=== PATIENT | female | born 1940 | race Caucasian/White ===

== ENCOUNTER 2018-03-26 19:16 | Inpatient (IN) | payer MEDICARE ==
[~2018-03-26] VITALS: Ht 152.4 cm; Wt 73.0 kg
[2018-03-26 19:40] LABS: BASOPHILS # (AUTO) 0.1 (0.0-0.1); BASOPHILS % 0.7 % (0.0-1.0); EOSINOPHILS # (AUTO) 0.7 (0.0-0.4); EOSINOPHILS % 6.4 % (0.0-6.0); HEMATOCRIT 44.8 % (34.2-44.1); HEMOGLOBIN 14.9 g/dL (12.0-16.0); LYMPHOCYTES # (AUTO) 4.5 (1.0-3.2); LYMPHOCYTES % 40.9 % (18.0-39.1); MEAN CORPUSCULAR HEMOGLOBIN 27.1 pg (28-32); MEAN CORPUSCULAR HGB CONC 33.3 g/dL (31-35); MEAN CORPUSCULAR VOLUME 81.5 fL (81-99); MONOCYTES # (AUTO) 0.6 (0.2-0.8); MONOCYTES % 5.8 % (4.4-11.3); NEUTROPHILS % 45.5 % (38.7-80.0); PLATELET COUNT 344 x10e3/uL (140-360); RED CELL DISTRIBUTION WIDTH 15.7 % (11.7-14.4)
[2018-03-26 19:43] LABS: CLARITY,URINE HAZY (CLEAR); COLOR,URINE YELLOW (YELLOW)
[2018-03-26 19:44] LABS: BILIRUBIN,URINE NEGATIVE (NEGATIVE); KETONES,URINE 1+ (NEGATIVE); LEUKOCYTE ESTERASE ,URINE 2+ (NEGATIVE); NITRITE,URINE POSITIVE (NEGATIVE); PROTEIN,URINE DIPSTICK 2+ (NEGATIVE); URINE UROBILINOGEN 0.2 mg/dL (0.2 - 1)
[2018-03-26 19:45] LABS: INR 1.04; PARTIAL THROMBOPLASTIN TIME 29.7 seconds (23.8-35.5); PROTHROMBIN TIME 12.8 seconds (11.9-14.5)
[2018-03-26] MEDS ORDERED: ASPIRIN 81 MG CHEW TAB PO ONE (19:45)
[2018-03-26] MEDS ORDERED: NAMZARIC PO (19:48)
[2018-03-26 19:52] LABS: ALBUMIN 2.9 g/dL (3.5-5.0); ALBUMIN/GLOBULIN RATIO 0.7 (0.8-2.0); ANION GAP 17.9 mmol/L (8-16); CALCIUM 9.8 mg/dL (8.4-10.2); CREATININE, SERUM 1.1 mg/dL (0.57-1.11); POTASSIUM 3.9 mmol/L (3.5-5.1)
[2018-03-26 19:55] LABS: WBC,URINE (MAN) >50 /HPF (0-5)
[2018-03-26 19:56] LABS: AMORPHOUS SEDIMENT,URINE MODERATE (FEW); BACTERIA,URINE MANY /HPF
--- NOTE | 2018-03-26 20:22 | Diagnostic Imaging Report ---
EXAMINATION: CHEST SINGLE (PORTABLE) INDICATION: \S\CHEST PAIN \S\[id number] \S\2000 \S\Y COMPARISON: None FINDINGS: AP view TUBES and LINES: 2-lead ICD device overlying the left upper chest with leads overlying the high right atrium and possible right ventricle, though RV lead is uncertain in location. LUNGS: Lungs are well inflated. Bilateral central pulmonary vascular congestion. Minimal atelectasis in both lung bases. PLEURA: No pleural effusion or pneumothorax. HEART AND MEDIASTINUM: Mild cardiomegaly. Enlarged pulmonary arteries. BONES AND SOFT TISSUES: No acute osseous lesion. Soft tissues are unremarkable. UPPER ABDOMEN: No free air under the diaphragm. IMPRESSION: 2-lead ICD. Uncertain location of the right ventricular lead. Recommend repeat upright PA and lateral chest x-ray for better localization. Bilateral central pulmonary vascular congestion. Signed by: Dr. Julieth Nieto M.D. on 03/26/2018 8:19 PM
--- NOTE | 2018-03-26 20:29 | Diagnostic Imaging Report ---
Exam: Head CT without contrast History: Weakness Comparison studies: None Technique: Axial images were obtained from the skull base to the vertex. Coronal and sagittal images reconstructed from the axial data. Intravenous contrast: None Findings: Scalp: No abnormalities. Bones: No fractures, blastic or lytic lesions. Brain sulci: Moderate prominent. Ventricles: Moderately dilated, slightly disproportionate to sulcal prominence is most likely related to degree of central, greater than peripheral cortical volume loss. Consider normal pressure hydrocephalus (NPH) only in the appropriate clinical setting. No acute hydrocephalus. Extra-axial spaces: No masses, no fluid collection. Parenchyma: No mass, acute hemorrhage or acute cortical vascular insults. Ill-defined and confluent hypodensities in the supratentorial white matter are nonspecific but most compatible with chronic microvascular ischemic changes. Sellar/suprasellar region: No abnormalities. Craniocervical junction: Patent foramen magnum. No Chiari one malformation. Incidental findings: Atherosclerotic calcifications in the carotid siphons and right intradural vertebral artery. Partially imaged small metallic density along the anterolateral margin of the right maxillary sinus inferiorly . IMPRESSION: No acute intracranial abnormalities. Chronic findings: 1. Moderate generalized volume loss. 2. Moderate microvascular ischemic changes. 3. Nonspecific ventriculomegaly as described. No acute hydrocephalus. Signed by: Dr. Glen Cheema M.D. on 03/26/2018 8:25 PM
[2018-03-26] MEDS ORDERED: VANCOMYCIN 1GM/NS 250 ML 250 ML IV SCH (21:30)
[2018-03-26] MEDS: PIPER-TAZ 3.375 GM 50 ML IV SCH (21:50)
[2018-03-26] MEDS ORDERED: DEXTROSE 50% SYRINGE 50 ML IV PRN (22:00)
[2018-03-26] MEDS ORDERED: MORPHINE SULFATE 2 MG/ML SYR IV PRN (22:00)
[2018-03-26] MEDS ORDERED: ONDANSETRON HCL INJ 2 MG/ML VIAL IV PRN (22:00)
[2018-03-26 22:38] VITALS: BP 156/76
[2018-03-26 23:22] VITALS: BP 133/70
[2018-03-26] MEDS ORDERED: PIOGLITAZONE HC30 MG PO (23:25)
[2018-03-26] MEDS ORDERED: ATORVASTATIN CA20 MG PO (23:26)
[2018-03-26] MEDS ORDERED: FUROSEMIDE40 MG PO (23:27)
[2018-03-26] MEDS ORDERED: TRADJENTA5 MG PO (23:29)
[2018-03-26] MEDS ORDERED: CARVEDILOL3.125 MG PO (23:30)
[2018-03-27] VITALS (8 sets, daily range): BP systolic 99–145; BP diastolic 56–70
[2018-03-27] MEDS: SODIUM CHLORIDE 0.9% 1000ML 1,000 ML IV SCH ×2 (00:51→17:52)
[2018-03-27 05:01] LABS: BASOPHILS # (AUTO) 0.1 (0.0-0.1); BASOPHILS % 0.6 % (0.0-1.0); EOSINOPHILS # (AUTO) 0.5 (0.0-0.4); EOSINOPHILS % 4.6 % (0.0-6.0); HEMATOCRIT 38.6 % (34.2-44.1); LYMPHOCYTES % 27.1 % (18.0-39.1); MEAN CORPUSCULAR HEMOGLOBIN 27.3 pg (28-32); MEAN CORPUSCULAR HGB CONC 33.7 g/dL (31-35); MEAN CORPUSCULAR VOLUME 81.1 fL (81-99); MONOCYTES # (AUTO) 0.8 (0.2-0.8); MONOCYTES % 6.9 % (4.4-11.3); NEUTROPHILS # (AUTO) 6.6 (2.1-6.9); NEUTROPHILS % 59.4 % (38.7-80.0); PLATELET COUNT 285 x10e3/uL (140-360); RED BLOOD COUNT 4.76 x10e6/uL (3.6-5.1); RED CELL DISTRIBUTION WIDTH 15.6 % (11.7-14.4)
[2018-03-27] MEDS: PIPER-TAZ 3.375 GM 50 ML IV SCH (05:19)
[2018-03-27 05:25] LABS: ALANINE AMINOTRANSFERASE 10 IU/L (0-55); ALBUMIN 2.6 g/dL (3.5-5.0); ALBUMIN/GLOBULIN RATIO 0.7 (0.8-2.0); ALKALINE PHOSPHATASE 94 IU/L (40-150); ANION GAP 15.8 mmol/L (8-16); BLOOD UREA NITROGEN 14 mg/dL (7-26); BUN/CREATININE RATIO 16 (6-25); CALCIUM 9.1 mg/dL (8.4-10.2); CARBON DIOXIDE 22 mmol/L (22-29); CHLORIDE 103 mmol/L (98-107); CREATININE, SERUM 0.85 mg/dL (0.57-1.11); EST GLOMERULAR FILTRATION RATE > 60 ML/MIN (60-); GLUCOSE 277 mg/dL (74-118); POTASSIUM 3.8 mmol/L (3.5-5.1); SODIUM 137 mmol/L (136-145)
[2018-03-27] MEDS: INSULIN REGULAR, HUMAN 100 UNIT/1 ML 3ML VIAL SQ SCH ×4 (08:04→21:00)
[2018-03-27] MEDS: FUROSEMIDE 40 MG TAB PO SCH (09:24)
[2018-03-27] MEDS: CARVEDILOL 3.125 MG TAB PO SCH ×2 (09:24→17:15)
[2018-03-27] MEDS: PIOGLITAZONE HCL 15 MG TAB PO SCH (09:24)
[2018-03-27] MEDS ORDERED: FUROSEMIDE INJ 10 MG/ML 2 ML VIAL IV ONE (09:30)
[2018-03-27] MEDS ORDERED: ACETAMINOPHEN 325 MG TAB PO PRN (09:30)
[2018-03-27] MEDS: FLUCONAZOLE 200 MG/100 ML 100 ML IV SCH (09:54)
[2018-03-27] MEDS: CEFTRIAXONE SOD 1 GM VIAL IV SCH (09:54)
[2018-03-27] MEDS: CLOTRIMAZOLE 1% CR 15 GM TOP SCH (17:15)
[2018-03-27] MEDS: ATORVASTATIN 20 MG TAB PO SCH (20:53)
[2018-03-28] VITALS (7 sets, daily range): BP systolic 107–142; BP diastolic 57–65
[2018-03-28 03:38] LABS: BASOPHILS # (AUTO) 0.1 (0.0-0.1); BASOPHILS % 0.9 % (0.0-1.0); EOSINOPHILS # (AUTO) 0.8 (0.0-0.4); EOSINOPHILS % 7.5 % (0.0-6.0); HEMATOCRIT 36.7 % (34.2-44.1); HEMOGLOBIN 12.3 g/dL (12.0-16.0); LYMPHOCYTES # (AUTO) 4.1 (1.0-3.2); LYMPHOCYTES % 40.3 % (18.0-39.1); MEAN CORPUSCULAR HEMOGLOBIN 27.3 pg (28-32); MEAN CORPUSCULAR HGB CONC 33.5 g/dL (31-35); MEAN CORPUSCULAR VOLUME 81.4 fL (81-99); MONOCYTES # (AUTO) 0.8 (0.2-0.8); MONOCYTES % 7.5 % (4.4-11.3); NEUTROPHILS # (AUTO) 4.3 (2.1-6.9); NEUTROPHILS % 42.8 % (38.7-80.0); PLATELET COUNT 239 x10e3/uL (140-360); RED BLOOD COUNT 4.51 x10e6/uL (3.6-5.1); RED CELL DISTRIBUTION WIDTH 15.9 % (11.7-14.4)
[2018-03-28 03:55] LABS: ANION GAP 14.1 mmol/L (8-16); BLOOD UREA NITROGEN 13 mg/dL (7-26); BUN/CREATININE RATIO 17 (6-25); CALCIUM 8.8 mg/dL (8.4-10.2); CARBON DIOXIDE 24 mmol/L (22-29); CHLORIDE 103 mmol/L (98-107); CREATININE, SERUM 0.76 mg/dL (0.57-1.11); EST GLOMERULAR FILTRATION RATE > 60 ML/MIN (60-); GLUCOSE 148 mg/dL (74-118); MAGNESIUM 1.2 MG/DL (1.3-2.1); POTASSIUM 3.1 mmol/L (3.5-5.1); SODIUM 138 mmol/L (136-145)
[2018-03-28] MEDS: BALSAM PERU/CASTOR OIL 60 GM OINT...G. TP SCH (06:00)
[2018-03-28] MEDS: PIOGLITAZONE HCL 15 MG TAB PO SCH (08:26)
[2018-03-28] MEDS: INSULIN REGULAR, HUMAN 100 UNIT/1 ML 3ML VIAL SQ SCH ×4 (08:27→21:00)
[2018-03-28] MEDS: FUROSEMIDE 40 MG TAB PO SCH (08:28)
[2018-03-28] MEDS: CARVEDILOL 3.125 MG TAB PO SCH ×2 (08:28→17:43)
[2018-03-28] MEDS: CLOTRIMAZOLE 1% CR 15 GM TOP SCH ×2 (08:46→17:39)
[2018-03-28] MEDS ORDERED: POTASSIUM CHLORIDE 20 MEQ TAB CR PO STA (09:21)
[2018-03-28] MEDS ORDERED: MAGNESIUM SULFATE 2GM/50ML 50 ML IV ONE (09:30)
[2018-03-28] MEDS: CEFTRIAXONE SOD 1 GM VIAL IV SCH (10:09)
[2018-03-28] MEDS: FLUCONAZOLE 200 MG/100 ML 100 ML IV SCH (10:09)
--- NOTE | 2018-03-28 13:35 | Consultation ---
DATE OF CONSULTATION: March 28, 2018 REASON FOR CONSULTATION: Pressure decubitus ulcer, UTI. HISTORY OF PRESENT ILLNESS: This patient, who is currently in [facility], is not a good source of information. She does not know why she is here. The patient apparently had a fall on February 25, 2018. Found to have fractured left arm, not a surgical candidate. Patient has been in bed. She presented with a decubitus ulcer to her sacral area. Infectious disease was consulted. The patient has a history of hyperlipidemia, hypertension, diabetes mellitus, congestive heart failure, CVA, and probably some dementia. Does not really provide any meaningful information. PAST SURGICAL HISTORY: ICD placement. REVIEW OF SYSTEMS: The patient is not a good source of information, as mentioned above. HEENT: Negative. PULMONARY: Negative. CARDIAC: Negative. : Negative. The patient was admitted. Her laboratory data reviewed and chart reviewed. PHYSICAL EXAMINATION GENERAL: She is currently alert. Does not seem to be in acute distress. VITALS: Stable, currently afebrile. HEENT: She is not icteric. Normocephalic. NECK: Supple. CHEST: Clear. HEART: S1 and S2, no murmur. ABDOMEN: Soft. SKIN: She does have bilateral heel ulcers on her heels, unstageable. She also has unstageable decubitus ulcer, sacral. IMPRESSION 1. Decubitus ulcer, sacral. Recommend debridement and send for culture and sensitivity. 2. Urinary tract infection. 3. Dementia. 4. Debility. 5. Agree with Rocephin for the time being. Further recommendations depending on the culture. 6. History of hypertension and congestive heart failure. LABORATORY DATA: Sodium 138, potassium 3.1, BUN 13, creatinine 0.76. White count 10, hemoglobin 12.3. Will follow. Job#: [id number]
--- NOTE | 2018-03-28 16:18 | Consultation ---
DATE OF CONSULTATION: March 28, 2018 REFERRING PHYSICIAN: Dr. Bhat. HISTORY OF PRESENT ILLNESS: Patient is a 78-year-old female with history of hyperlipidemia, hypertension, type 2 diabetes, congestive heart failure who was admitted the hospital for UTI and found to have bilateral pressure sores as well as bilateral heel pressure sores. Request is made for debridement of these wounds. PAST MEDICAL HISTORY: As above. She does not really give any history when I talked to her. Apparently, she has had previous ICD placement and previous hysterectomy. FAMILY HISTORY: Noncontributory. SOCIAL HISTORY: She does not smoke cigarettes or drink alcohol. MEDICATIONS: Listed in the chart. REVIEW OF SYSTEMS: Cannot be obtained. PHYSICAL EXAMINATION GENERAL: The patient is awake and alert but does not answer questions appropriately. EXTREMITIES: Significant findings, there are necrotic ulcers on both heels as well as both buttocks. There is no surrounding erythema. ASSESSMENT: A 78-year-old female with necrotic wounds on heels and buttocks. She would likely benefit from excisional debridement which we can do when the patient is medically stable. Plan to schedule to be done a few days from now. Thank you for asking me to see Ms. Mckeon. Job#: [id number]
[2018-03-28] MEDS: ZINC SULFATE 220 MG CAP PO SCH (17:39)
[2018-03-28] MEDS: ASCORBIC ACID 500 MG TAB PO SCH (17:39)
[2018-03-28] MEDS: OYST-CAL-D 500MG TABLET PO SCH (17:39)
[2018-03-28] MEDS: MAGNESIUM OXIDE 400 MG TAB PO SCH (17:42)
[2018-03-28] MEDS: ATORVASTATIN 20 MG TAB PO SCH (20:55)
[2018-03-28] MEDS: CHOLESTYRAMINE 4 GM PACKET PO PRN (22:16)
[2018-03-29] VITALS (8 sets, daily range): BP systolic 120–153; BP diastolic 58–70
[2018-03-29 03:55] LABS: BASOPHILS # (AUTO) 0.1 (0.0-0.1); BASOPHILS % 0.6 % (0.0-1.0); EOSINOPHILS # (AUTO) 0.7 (0.0-0.4); EOSINOPHILS % 7.6 % (0.0-6.0); HEMATOCRIT 33.2 % (34.2-44.1); LYMPHOCYTES # (AUTO) 3.7 (1.0-3.2); LYMPHOCYTES % 39.9 % (18.0-39.1); MEAN CORPUSCULAR HEMOGLOBIN 27.2 pg (28-32); MEAN CORPUSCULAR HGB CONC 33.1 g/dL (31-35); MEAN CORPUSCULAR VOLUME 82.2 fL (81-99); MONOCYTES # (AUTO) 0.6 (0.2-0.8); MONOCYTES % 6.5 % (4.4-11.3); NEUTROPHILS # (AUTO) 4.1 (2.1-6.9); NEUTROPHILS % 44.5 % (38.7-80.0); PLATELET COUNT 230 x10e3/uL (140-360); RED BLOOD COUNT 4.04 x10e6/uL (3.6-5.1)
[2018-03-29 04:15] LABS: ANION GAP 10.6 mmol/L (8-16); BLOOD UREA NITROGEN 12 mg/dL (7-26); BUN/CREATININE RATIO 16 (6-25); CARBON DIOXIDE 24 mmol/L (22-29); CHLORIDE 101 mmol/L (98-107); CREATININE, SERUM 0.73 mg/dL (0.57-1.11); EST GLOMERULAR FILTRATION RATE > 60 ML/MIN (60-); GLUCOSE 147 mg/dL (74-118); MAGNESIUM 1.6 MG/DL (1.3-2.1); POTASSIUM 3.6 mmol/L (3.5-5.1); SODIUM 132 mmol/L (136-145)
[2018-03-29] MEDS: BALSAM PERU/CASTOR OIL 60 GM OINT...G. TP SCH (04:48)
[2018-03-29] MEDS: SODIUM CHLORIDE 0.9% 1000ML 1,000 ML IV SCH (06:23)
[2018-03-29] MEDS: FUROSEMIDE 40 MG TAB PO SCH (08:40)
[2018-03-29] MEDS: PIOGLITAZONE HCL 15 MG TAB PO SCH (08:40)
[2018-03-29] MEDS: MAGNESIUM OXIDE 400 MG TAB PO SCH ×2 (08:40→17:47)
[2018-03-29] MEDS: CARVEDILOL 3.125 MG TAB PO SCH ×2 (08:40→17:47)
[2018-03-29] MEDS: MULTIVITAMINS/MINERALS TAB PO SCH (08:41)
[2018-03-29] MEDS: FLUCONAZOLE 200 MG/100 ML 100 ML IV SCH (08:41)
[2018-03-29] MEDS: ASCORBIC ACID 500 MG TAB PO SCH ×2 (08:41→17:47)
[2018-03-29] MEDS: ZINC SULFATE 220 MG CAP PO SCH ×2 (08:41→17:47)
[2018-03-29] MEDS: CEFTRIAXONE SOD 1 GM VIAL IV SCH (08:41)
[2018-03-29] MEDS: OYST-CAL-D 500MG TABLET PO SCH ×2 (08:41→17:47)
[2018-03-29] MEDS: CLOTRIMAZOLE 1% CR 15 GM TOP SCH ×2 (08:41→17:47)
[2018-03-29] MEDS: INSULIN REGULAR, HUMAN 100 UNIT/1 ML 3ML VIAL SQ SCH ×4 (08:41→21:52)
[2018-03-29] MEDS ORDERED: OLANZAPINE 5 MG TAB PO PRN (18:15)
[2018-03-29] MEDS ORDERED: LORAZEPAM INJ 2 MG/ML VIAL IM PRN (18:15)
[2018-03-29] MEDS: ATORVASTATIN 20 MG TAB PO SCH (21:51)
[2018-03-30] VITALS (8 sets, daily range): BP systolic 118–140; BP diastolic 58–69
[2018-03-30 04:38] LABS: BASOPHILS # (AUTO) 0.1 (0.0-0.1); BASOPHILS % 0.5 % (0.0-1.0); EOSINOPHILS # (AUTO) 0.6 (0.0-0.4); EOSINOPHILS % 6.1 % (0.0-6.0); HEMATOCRIT 32.9 % (34.2-44.1); HEMOGLOBIN 10.8 g/dL (12.0-16.0); LYMPHOCYTES # (AUTO) 2.8 (1.0-3.2); LYMPHOCYTES % 29.8 % (18.0-39.1); MEAN CORPUSCULAR HEMOGLOBIN 27.3 pg (28-32); MEAN CORPUSCULAR HGB CONC 32.8 g/dL (31-35); MEAN CORPUSCULAR VOLUME 83.1 fL (81-99); MONOCYTES # (AUTO) 0.6 (0.2-0.8); MONOCYTES % 6.7 % (4.4-11.3); NEUTROPHILS # (AUTO) 5.3 (2.1-6.9); PLATELET COUNT 214 x10e3/uL (140-360); RED BLOOD COUNT 3.96 x10e6/uL (3.6-5.1); RED CELL DISTRIBUTION WIDTH 16.3 % (11.7-14.4)
[2018-03-30 04:54] LABS: ANION GAP 11.8 mmol/L (8-16); BLOOD UREA NITROGEN 11 mg/dL (7-26); BUN/CREATININE RATIO 15 (6-25); CALCIUM 8.9 mg/dL (8.4-10.2); CARBON DIOXIDE 24 mmol/L (22-29); CHLORIDE 105 mmol/L (98-107); CREATININE, SERUM 0.71 mg/dL (0.57-1.11); EST GLOMERULAR FILTRATION RATE > 60 ML/MIN (60-); GLUCOSE 173 mg/dL (74-118); MAGNESIUM 1.4 MG/DL (1.3-2.1); POTASSIUM 3.8 mmol/L (3.5-5.1); SODIUM 137 mmol/L (136-145)
[2018-03-30] MEDS: BALSAM PERU/CASTOR OIL 60 GM OINT...G. TP SCH (05:51)
--- NOTE | 2018-03-30 08:45 | Consultation ---
DATE OF CONSULTATION: March 29, 2018 PSYCHIATRIC CONSULTATION REASON FOR CONSULTATION: Evaluate the patient's mood. HPI: The patient is a 78-year-old female admitted to the hospital for a pressure ulcer. Psychiatric consultation was called to evaluate the patient's mood. According to medical record, the patient has a history of a heart failure, CVA, hypertension, diabetes, hyperlipidemia. Upon evaluation today, the patient is found to be in the room. She is alert, awake and oriented to self and place. She does not know the year. She does not know the reason for the hospitalization. She has difficulty remembering the current president. The patient is able to answer questions appropriately, but she appears to be confused. She denies depression or anxiety. She denies hopelessness, but she feels helpless. She denies having anxiety, but she is anxious as she states she wants to go home. She denies any hallucinations. She denies any problems with sleep or appetite. She does not elicit paranoia or delusional thinking. As per nursing staff, the patient is forgetful, confused and being fully challenged at times. She is not combative. PAST PSYCHIATRIC HISTORY: The patient denies. She denies past suicide attempt, alcohol or drug use. FAMILY HISTORY: The patient denies. SOCIAL HISTORY: The patient says she lives with her . MENTAL STATUS EXAMINATION GENERAL: The patient is an elderly female. She is alert, awake and oriented to self and place. Her mood is anxious. She denies any suicide or homicidal ideations. She denies any hallucinations. Thought process is concrete and loose. No delusions or paranoia elicited. Memory appears to be grossly impaired. Insight and judgment are limited. Psychomotor state is . MEDICATIONS: Insulin, Sevelamer, , calcium carbonate, ascorbic acid, clotrimazole, ceftriaxone, magnesium, Actos, Lasix, carvedilol, ondansetron, cholestyramine, atorvastatin, acetaminophen with codeine, dextrose, morphine sulfate. CURRENT LABS: WBC is 9.3, RBC 4.04, hemoglobin 11, hematocrit 32.2, and platelets 230,000. Sodium 132, potassium 3.6, chloride 101, CO2 24, BUN 12, creatinine 0.73. ASSESSMENT: Adjustment disorder with mixed mood and unspecified dementia with behavioral changes. PLAN: Add Ativan p.r.n. p.o. Add Ativan p.r.n. IM. Add Wellbutrin 75 mg p.o. daily. Add Namenda 5 mg p.o. daily. Supportive therapy. Thank you for this consultation. Discussed with nursing staff. DICTATED BY MARITZA DIAZ Job#: [id number] RI
[2018-03-30] MEDS: FUROSEMIDE 40 MG TAB PO SCH (09:01)
[2018-03-30] MEDS: CARVEDILOL 3.125 MG TAB PO SCH ×2 (09:01→17:36)
[2018-03-30] MEDS: PIOGLITAZONE HCL 15 MG TAB PO SCH (09:01)
[2018-03-30] MEDS: CLOTRIMAZOLE 1% CR 15 GM TOP SCH ×2 (09:02→17:36)
[2018-03-30] MEDS: INSULIN REGULAR, HUMAN 100 UNIT/1 ML 3ML VIAL SQ SCH ×4 (09:02→20:53)
[2018-03-30] MEDS: BUPROPION HCL 75 MG TAB PO SCH (09:02)
[2018-03-30] MEDS: MULTIVITAMINS/MINERALS TAB PO SCH (09:02)
[2018-03-30] MEDS: ASCORBIC ACID 500 MG TAB PO SCH ×2 (09:02→17:36)
[2018-03-30] MEDS: ZINC SULFATE 220 MG CAP PO SCH ×2 (09:02→17:36)
[2018-03-30] MEDS: OYST-CAL-D 500MG TABLET PO SCH ×2 (09:02→17:36)
[2018-03-30] MEDS: CEFTRIAXONE SOD 1 GM VIAL IV SCH (09:02)
[2018-03-30] MEDS: LORAZEPAM 0.5 MG TAB PO PRN ×2 (09:02→22:17)
[2018-03-30] MEDS: MAGNESIUM OXIDE 400 MG TAB PO SCH ×2 (09:02→17:36)
[2018-03-30] MEDS: ATORVASTATIN 20 MG TAB PO SCH (20:51)
[2018-03-31] VITALS (7 sets, daily range): BP systolic 110–142; BP diastolic 57–66
[2018-03-31 03:38] LABS: BASOPHILS # (AUTO) 0.1 (0.0-0.1); BASOPHILS % 0.6 % (0.0-1.0); EOSINOPHILS # (AUTO) 0.8 (0.0-0.4); HEMATOCRIT 32.2 % (34.2-44.1); HEMOGLOBIN 10.6 g/dL (12.0-16.0); LYMPHOCYTES # (AUTO) 3.9 (1.0-3.2); LYMPHOCYTES % 39.6 % (18.0-39.1); MEAN CORPUSCULAR HEMOGLOBIN 27.4 pg (28-32); MEAN CORPUSCULAR HGB CONC 32.9 g/dL (31-35); MEAN CORPUSCULAR VOLUME 83.2 fL (81-99); MONOCYTES # (AUTO) 0.6 (0.2-0.8); MONOCYTES % 6.6 % (4.4-11.3); NEUTROPHILS # (AUTO) 4.4 (2.1-6.9); NEUTROPHILS % 44.5 % (38.7-80.0); PLATELET COUNT 221 x10e3/uL (140-360); RED BLOOD COUNT 3.87 x10e6/uL (3.6-5.1); RED CELL DISTRIBUTION WIDTH 16.4 % (11.7-14.4)
[2018-03-31 03:58] LABS: ANION GAP 11.8 mmol/L (8-16); BLOOD UREA NITROGEN 8 mg/dL (7-26); BUN/CREATININE RATIO 12 (6-25); CALCIUM 9.6 mg/dL (8.4-10.2); CARBON DIOXIDE 24 mmol/L (22-29); CHLORIDE 103 mmol/L (98-107); CREATININE, SERUM 0.65 mg/dL (0.57-1.11); EST GLOMERULAR FILTRATION RATE > 60 ML/MIN (60-); GLUCOSE 127 mg/dL (74-118); MAGNESIUM 1.4 MG/DL (1.3-2.1); POTASSIUM 3.8 mmol/L (3.5-5.1); SODIUM 135 mmol/L (136-145)
[2018-03-31] MEDS: BALSAM PERU/CASTOR OIL 60 GM OINT...G. TP SCH (05:52)
[2018-03-31] MEDS: PIOGLITAZONE HCL 15 MG TAB PO SCH (08:36)
[2018-03-31] MEDS: INSULIN REGULAR, HUMAN 100 UNIT/1 ML 3ML VIAL SQ SCH ×4 (08:36→21:53)
[2018-03-31] MEDS: CLOTRIMAZOLE 1% CR 15 GM TOP SCH ×2 (08:37→17:27)
[2018-03-31] MEDS: MULTIVITAMINS/MINERALS TAB PO SCH (08:37)
[2018-03-31] MEDS: CARVEDILOL 3.125 MG TAB PO SCH ×2 (08:37→17:27)
[2018-03-31] MEDS: LORAZEPAM 0.5 MG TAB PO PRN ×2 (08:37→17:27)
[2018-03-31] MEDS: ASCORBIC ACID 500 MG TAB PO SCH ×2 (08:37→17:27)
[2018-03-31] MEDS: MAGNESIUM OXIDE 400 MG TAB PO SCH ×2 (08:37→17:27)
[2018-03-31] MEDS: CHOLESTYRAMINE 4 GM PACKET PO PRN ×2 (08:37→17:28)
[2018-03-31] MEDS: FUROSEMIDE 40 MG TAB PO SCH (08:37)
[2018-03-31] MEDS: CEFTRIAXONE SOD 1 GM VIAL IV SCH (08:37)
[2018-03-31] MEDS: OYST-CAL-D 500MG TABLET PO SCH ×2 (08:37→17:27)
[2018-03-31] MEDS: ZINC SULFATE 220 MG CAP PO SCH ×2 (08:37→17:27)
[2018-03-31] MEDS: BUPROPION HCL 75 MG TAB PO SCH (08:37)
[2018-03-31] MEDS: LOPERAMIDE HCL 2 MG CAP PO PRN ×3 (10:55→17:27)
[2018-03-31] MEDS: ATORVASTATIN 20 MG TAB PO SCH (21:52)
[2018-03-31] MEDS: ACETAMINOPHEN/CODEINE 300MG - 30MG TAB PO PRN (21:53)
[2018-04-01] VITALS (9 sets, daily range): BP systolic 110–164; BP diastolic 56–74
[2018-04-01] MEDS: BALSAM PERU/CASTOR OIL 60 GM OINT...G. TP SCH (05:37)
[2018-04-01 05:52] LABS: BASOPHILS # (AUTO) 0.1 (0.0-0.1); BASOPHILS % 0.6 % (0.0-1.0); EOSINOPHILS # (AUTO) 0.7 (0.0-0.4); EOSINOPHILS % 7.9 % (0.0-6.0); HEMATOCRIT 35.2 % (34.2-44.1); HEMOGLOBIN 11.5 g/dL (12.0-16.0); LYMPHOCYTES # (AUTO) 3.3 (1.0-3.2); MEAN CORPUSCULAR HEMOGLOBIN 27.1 pg (28-32); MEAN CORPUSCULAR HGB CONC 32.7 g/dL (31-35); MEAN CORPUSCULAR VOLUME 82.8 fL (81-99); MONOCYTES # (AUTO) 0.6 (0.2-0.8); MONOCYTES % 6.6 % (4.4-11.3); NEUTROPHILS # (AUTO) 4.3 (2.1-6.9); NEUTROPHILS % 47.2 % (38.7-80.0); PLATELET COUNT 236 x10e3/uL (140-360); RED BLOOD COUNT 4.25 x10e6/uL (3.6-5.1); RED CELL DISTRIBUTION WIDTH 16.6 % (11.7-14.4)
[2018-04-01 06:08] LABS: ANION GAP 12.2 mmol/L (8-16); BLOOD UREA NITROGEN 8 mg/dL (7-26); BUN/CREATININE RATIO 11 (6-25); CALCIUM 9.2 mg/dL (8.4-10.2); CARBON DIOXIDE 23 mmol/L (22-29); CHLORIDE 104 mmol/L (98-107); EST GLOMERULAR FILTRATION RATE > 60 ML/MIN (60-); GLUCOSE 149 mg/dL (74-118); MAGNESIUM 1.4 MG/DL (1.3-2.1); POTASSIUM 4.2 mmol/L (3.5-5.1); SODIUM 135 mmol/L (136-145)
--- NOTE | 2018-04-01 08:17 | Operative Report ---
DATE OF PROCEDURE: April 01, 2018 PREOPERATIVE DIAGNOSES 1. Necrotic ulcers, bilateral buttocks. 2. Necrotic ulcer, left heel. POSTOPERATIVE DIAGNOSES 1. Necrotic ulcers, bilateral buttocks. 2. Necrotic ulcer, left heel. PROCEDURE: Excisional debridement of necrotic ulcer, bilateral buttocks and left heel, skin and subcutaneous tissue. CASINO CONTROLLER: None. ANESTHESIA: General. INDICATIONS AND FINDINGS: Patient is a 78-year-old female who was admitted to the hospital with signs of sepsis and found to have necrotic ulcers on each buttock, as well as on the left heel. At surgery, there was necrotic tissue in both buttocks mostly on the left side and were approximately 10 cm area of skin and subcutaneous tissue was excised. In the right buttock, there was a small area of only about 5 squared cm. Skin and subcutaneous tissue was excised. On the left heel, there was deep ulcer extending down almost to the bone. There area was about 12 squared cm involving skin and subcutaneous tissue. TECHNIQUE: After adequate general anesthesia with the patient in the right side down position, each buttock and left heel were prepped and draped in a sterile fashion with Betadine solution. Starting in the right buttock, necrotic tissue was excised. This was excised back to healthy bleeding tissue. The area of debridement was about 10 squared cm. All skin and subcutaneous tissue with no muscle involved. On the left buttock, there was a small area that was about 5 squared cm, which was excised of skin and subcutaneous tissue back to healthy bleeding tissue. Hemostasis achieved with electrocautery. On the left heel, all necrotic tissue was excised. There was about 3 x 4 cm. All skin and subcutaneous tissue did extend down close to bone, but did not involve the bone. Hemostasis achieved with electrocautery. Each wound was then dressed with saline moistened gauze. Sterile dressing applied. The patient tolerated the procedure well. Estimated blood loss for the entire procedure was 10 mL. There were no complications. All counts were correct. The patient was taken to the recovery room in satisfactory condition. Job#: [id number] RAMAN
[2018-04-01] MEDS: PIOGLITAZONE HCL 15 MG TAB PO SCH (09:01)
[2018-04-01] MEDS: CLOTRIMAZOLE 1% CR 15 GM TOP SCH ×2 (09:02→16:32)
[2018-04-01] MEDS: BUPROPION HCL 75 MG TAB PO SCH (09:02)
[2018-04-01] MEDS: MAGNESIUM OXIDE 400 MG TAB PO SCH ×2 (09:02→16:32)
[2018-04-01] MEDS: CARVEDILOL 3.125 MG TAB PO SCH ×2 (09:02→16:32)
[2018-04-01] MEDS: ASCORBIC ACID 500 MG TAB PO SCH ×2 (09:02→16:32)
[2018-04-01] MEDS: INSULIN REGULAR, HUMAN 100 UNIT/1 ML 3ML VIAL SQ SCH ×4 (09:02→21:34)
[2018-04-01] MEDS: MULTIVITAMINS/MINERALS TAB PO SCH (09:02)
[2018-04-01] MEDS: ZINC SULFATE 220 MG CAP PO SCH ×2 (09:02→16:32)
[2018-04-01] MEDS: CEFTRIAXONE SOD 1 GM VIAL IV SCH (09:02)
[2018-04-01] MEDS: OYST-CAL-D 500MG TABLET PO SCH ×2 (09:02→16:32)
[2018-04-01] MEDS: FUROSEMIDE 40 MG TAB PO SCH (09:02)
[2018-04-01] MEDS: AMLODIPINE BESYLATE 10 MG TAB PO SCH (11:25)
[2018-04-01] MEDS: ATORVASTATIN 20 MG TAB PO SCH (21:16)
[2018-04-01] MEDS: ACETAMINOPHEN/CODEINE 300MG - 30MG TAB PO PRN (21:40)
[2018-04-02] VITALS (7 sets, daily range): BP systolic 100–183; BP diastolic 51–95
[2018-04-02] MEDS: BALSAM PERU/CASTOR OIL 60 GM OINT...G. TP SCH (05:37)
[2018-04-02 05:49] LABS: BASOPHILS # (AUTO) 0.1 (0.0-0.1); BASOPHILS % 0.8 % (0.0-1.0); EOSINOPHILS # (AUTO) 0.6 (0.0-0.4); HEMATOCRIT 34.7 % (34.2-44.1); HEMOGLOBIN 11.1 g/dL (12.0-16.0); LYMPHOCYTES % 42.5 % (18.0-39.1); MEAN CORPUSCULAR HEMOGLOBIN 27.2 pg (28-32); MONOCYTES # (AUTO) 0.6 (0.2-0.8); MONOCYTES % 6.8 % (4.4-11.3); NEUTROPHILS # (AUTO) 4.1 (2.1-6.9); NEUTROPHILS % 43.2 % (38.7-80.0); PLATELET COUNT 230 x10e3/uL (140-360); RED BLOOD COUNT 4.08 x10e6/uL (3.6-5.1); RED CELL DISTRIBUTION WIDTH 16.6 % (11.7-14.4)
[2018-04-02 06:19] LABS: ANION GAP 12.9 mmol/L (8-16); BLOOD UREA NITROGEN 9 mg/dL (7-26); BUN/CREATININE RATIO 13 (6-25); CALCIUM 9.2 mg/dL (8.4-10.2); CARBON DIOXIDE 25 mmol/L (22-29); CHLORIDE 104 mmol/L (98-107); CREATININE, SERUM 0.69 mg/dL (0.57-1.11); EST GLOMERULAR FILTRATION RATE > 60 ML/MIN (60-); GLUCOSE 129 mg/dL (74-118); MAGNESIUM 1.6 MG/DL (1.3-2.1); POTASSIUM 3.9 mmol/L (3.5-5.1); SODIUM 138 mmol/L (136-145)
[2018-04-02] MEDS: ACETAMINOPHEN/CODEINE 300MG - 30MG TAB PO PRN ×3 (08:29→23:25)
[2018-04-02] MEDS: CARVEDILOL 3.125 MG TAB PO SCH ×2 (08:29→16:18)
[2018-04-02] MEDS: PIOGLITAZONE HCL 15 MG TAB PO SCH (08:29)
[2018-04-02] MEDS: INSULIN REGULAR, HUMAN 100 UNIT/1 ML 3ML VIAL SQ SCH ×4 (08:29→20:31)
[2018-04-02] MEDS: FUROSEMIDE 40 MG TAB PO SCH (08:29)
[2018-04-02] MEDS: ASCORBIC ACID 500 MG TAB PO SCH ×2 (08:29→16:18)
[2018-04-02] MEDS: ZINC SULFATE 220 MG CAP PO SCH ×2 (08:29→16:18)
[2018-04-02] MEDS: MAGNESIUM OXIDE 400 MG TAB PO SCH ×2 (08:29→16:18)
[2018-04-02] MEDS: OYST-CAL-D 500MG TABLET PO SCH ×2 (08:29→16:18)
[2018-04-02] MEDS: AMLODIPINE BESYLATE 10 MG TAB PO SCH (08:29)
[2018-04-02] MEDS: MULTIVITAMINS/MINERALS TAB PO SCH (08:29)
[2018-04-02] MEDS: CLOTRIMAZOLE 1% CR 15 GM TOP SCH ×2 (08:29→16:18)
[2018-04-02] MEDS: BUPROPION HCL 75 MG TAB PO SCH (08:29)
[2018-04-02] MEDS: CEFTRIAXONE SOD 1 GM VIAL IV SCH (08:30)
--- NOTE | 2018-04-02 08:36 | Consultation ---
DATE OF CONSULTATION: NO DICTATION, LENGTH 0:2 Job#: [id number] RI
--- NOTE | 2018-04-02 08:40 | Progress Note ---
DATE: April 01, 2018 PSYCHIATRIC PROGRESS NOTE The patient was evaluated and events noted. The patient is currently awake. She is alert, awake and oriented to situation. She is doing well. She denies any depression or anxiety. She denies any hallucinations. She denies any suicidal ideation. She is pleasantly confused. She denies any side effects to medications. ASSESSMENT: Adjustment disorder with mixed mood; unspecified dementia. PLAN: Continue with Ativan p.r.n. p.o. Continue Ativan p.r.n. IM. Continue Wellbutrin 75 mg p.o. daily. Supportive therapy. DICTATED BY MARITZA DIAZ Job#: [id number] RAMAN
[2018-04-02] MEDS ORDERED: PROPOFOL IV EMULSION 10 MG/ML 20 ML VIAL IV ONE (12:56)
[2018-04-02] MEDS: ATORVASTATIN 20 MG TAB PO SCH (20:24)
[2018-04-03] VITALS: BP 120/59
[2018-04-03 04:00] VITALS: BP 119/53
[2018-04-03] MEDS: BALSAM PERU/CASTOR OIL 60 GM OINT...G. TP SCH (05:52)
[2018-04-03] MEDS: INSULIN REGULAR, HUMAN 100 UNIT/1 ML 3ML VIAL SQ SCH ×2 (07:55→11:45)
[2018-04-03] MEDS: PIOGLITAZONE HCL 15 MG TAB PO SCH (08:05)
[2018-04-03 08:08] VITALS: BP 130/60
[2018-04-03] MEDS: OYST-CAL-D 500MG TABLET PO SCH (08:20)
[2018-04-03] MEDS: FUROSEMIDE 40 MG TAB PO SCH (08:20)
[2018-04-03] MEDS: ZINC SULFATE 220 MG CAP PO SCH (08:20)
[2018-04-03] MEDS: MAGNESIUM OXIDE 400 MG TAB PO SCH (08:20)
[2018-04-03] MEDS: BUPROPION HCL 75 MG TAB PO SCH (08:20)
[2018-04-03] MEDS: MULTIVITAMINS/MINERALS TAB PO SCH (08:20)
[2018-04-03] MEDS: ASCORBIC ACID 500 MG TAB PO SCH (08:20)
[2018-04-03] MEDS: CARVEDILOL 3.125 MG TAB PO SCH (08:20)
[2018-04-03] MEDS: AMLODIPINE BESYLATE 10 MG TAB PO SCH (08:21)
[2018-04-03] MEDS ORDERED: MEMANTINE 10 MG TAB PO SCH (09:00)
[2018-04-03] MEDS: CLOTRIMAZOLE 1% CR 15 GM TOP SCH (09:05)
[2018-04-03] MEDS: CEFTRIAXONE SOD 1 GM VIAL IV SCH (09:05)
[2018-04-03 09:52] VITALS: BP 130/60
--- NOTE | 2018-04-03 10:31 | Progress Note ---
DATE: April 02, 2018 PSYCHIATRIC PROGRESS NOTE Patient evaluated and events noted. The patient is lying in her bed. She is alert, awake and oriented to situation. She is anxious and wants to go home. She denies any depression. She denies any suicidal ideation. She denies any hallucinations. She denies any problems with sleep or appetite. As per nursing staff, the patient has been forgetful and confused, but not combative, restless or agitated. ASSESSMENT: Adjustment disorder with mixed mood; unspecified dementia. PLAN 1. Continue with Wellbutrin. 2. Add Namenda. 3. Continue with p.r.n. Ativan. 4. Supportive therapy. 5. Monitor for mood and agitation. Dictated by: MARITZA Douglass Job#: [id number]
[2018-04-03] MEDS ORDERED: DEXAMETHASONE SOD PHOS INJ 4 MG/ML VIAL IV ONE (12:56)
[2018-04-03] MEDS ORDERED: LIDOCAINE HCL 2% LOCAL INJ 5 ML SDV VIAL INJ ONE (12:56)
[2018-04-03] MEDS ORDERED: ONDANSETRON HCL INJ 2 MG/ML VIAL IV ONE (12:56)
[2018-04-03] MEDS ORDERED: SEVOFLURANE INHAL SOLN 250 ML PEN BTL INH ONE (12:56)
[2018-04-03 13:09] VITALS: BP 114/58
--- NOTE | 2018-04-03 17:19 | Discharge Summary ---
ADMISSION DIAGNOSES 1. Urinary tract infection. 2. Bilateral sacral and buttock wounds. 3. Hypertension. 4. Hyperlipidemia. 5. Type 2 diabetes. 6. Vaginal yeast infection. 7. Altered mental status, which appears at baseline. 8. Left heel ulcer. DISCHARGE DIAGNOSES 1. Urinary tract infection. 2. Bilateral sacral and buttock wounds. 3. Hypertension. 4. Hyperlipidemia. 5. Type 2 diabetes. 6. Vaginal yeast infection. 7. Altered mental status, which appears at baseline. 8. Left heel ulcer. 9. Ruled out cerebrovascular accident. 10. Status post debridement of bilateral buttocks and left heel ulcers. 11. Congestive heart failure. HISTORY: The patient has a history of CHF, type 2 diabetes, hypertension, hyperlipidemia and surgical history of pacer with an AICD platelets and hysterectomy. HOSPITAL COURSE: A 78-year-old female had a fall on February 25, 2018 and was found to have a left fractured arm. No surgery was indicated and she was sent home with a splint. Per daughter, the patient has wounds that keep getting worse because the patient does not help herself any more. She does not like to use her left arm very much and often does not get out of bed. Per her daughter, the patient's does everything for her. She has not walked in 2 weeks. No nausea, vomiting, diarrhea or fever. Although the patient is wanting to return home after hospitalization, she is intermittently confused and the daughter has Power of House Worker. Per the daughter, she is requesting for her to go get long-term therapy in a facility. On admission, the patient had a chest x-ray that showed bilateral central pulmonary vascular congestion. CT of the brain showed no acute abnormalities, moderate generalized volume loss, moderate microvascular ischemic changes. Per daughter's request, the patient was evaluated by psychiatry due to her changing mood. Per psychiatry, the patient was started on Wellbutrin daily and Namenda daily as well as Ativan p.r.n. ID was consulted as well as surgery. The patient had debridement of the ulcers of bilateral buttock and left heel on April 01. The patient tolerated surgery well. The patient was found to have Klebsiella of the urine and was started on Rocephin. The patient also found to have coag negative Staph on a blood culture, per ID were contaminated. The patient started with physical therapy and the most she could do was to sit up on the side of the bed for a few minutes. She will discharge to [facility] for antibiotics for 2 weeks and physical therapy per daughter's request. The patient and family understand discharge instructions and agree to plan. Vital signs stable. The patient is afebrile. The patient will resume all hospital medications at [facility]. Dictated by: Charlene Marroquin NP ANNETTE ATWOOD MD Job#: [id number] GH
== END 2018-04-03 12:57 | DRG 571 ==
LOC: ER 19:22 → ERHOLD 22:06 → MED/SURG3 23:15
PROVIDERS: ADMIT Internal Medicine; ATTEND Internal Medicine
PROC: 0JB90ZZ Excision of Buttock Subcutaneous Tissue and Fascia, Open Approach (ICD-10-PCS; 2018-04-01)
PROC: 0JBR0ZZ Excision of Left Foot Subcutaneous Tissue and Fascia, Open Approach (ICD-10-PCS; principal; 2018-04-01 07:30)
DX: L89.322 Pressure ulcer of left buttock, stage 2 (principal); N30.01 Acute cystitis with hematuria; E87.1 Hypo-osmolality and hyponatremia; F03.91 Unspecified dementia, unspecified severity, with behavioral disturbance; L89.312 Pressure ulcer of right buttock, stage 2; Z68.29 Body mass index [BMI] 29.0-29.9, adult; R53.81 Other malaise; B37.3 Candidiasis of vulva and vagina; E11.9 Type 2 diabetes mellitus without complications; I50.9 Heart failure, unspecified; L89.621 Pressure ulcer of left heel, stage 1; E78.5 Hyperlipidemia, unspecified; Z95.810 Presence of automatic (implantable) cardiac defibrillator; I11.0 Hypertensive heart disease with heart failure; Z83.3 Family history of diabetes mellitus; Z82.3 Family history of stroke; Z86.73 Personal history of transient ischemic attack (TIA), and cerebral infarction without residual deficits; Z79.4 Long term (current) use of insulin; F43.23 Adjustment disorder with mixed anxiety and depressed mood; E83.42 Hypomagnesemia; E87.6 Hypokalemia; R19.7 Diarrhea, unspecified; B96.1 Klebsiella pneumoniae [K. pneumoniae] as the cause of diseases classified elsewhere; E66.9 Obesity, unspecified
CPT/HCPCS: 36415; 51700; 70450; 71045; 80048; 80053; 81001; 82140; 82550; 82553; 82948; 83036; 83605; 83735; 83880; 84484; 85025; 85610; 85730; 87040; 87071; 87086; 87186; 87205; 87493; 88304; 88305; 93005; 96361; 96372; 97139; 99285; J0696; J1100; J1450; J1940; J2001; J2270; J2405; J2543; J3370; J7030